=== PATIENT | male | born 1985 | race African-American/Black ===

== ENCOUNTER 2017-07-25 23:50 | Emergency (ER) | payer OTHER ==
[~2017-07-25] VITALS: Ht 185.4 cm; Wt 93.0 kg
[~2017-07-25 23:50] MED LIST: NOHOMEMEDICATIONS; PHENERGAN 25 MG25 M1 PO; PROMETHAZINE12.5 M1 PO
[2017-07-26] MEDS ORDERED: PREDNISONE50 MG PO (00:42)
[2017-07-26 01:09] VITALS: BP 125/75
== END 2017-07-26 01:14 | disposition home or self-care (01) ==
LOC: M.ERS 23:50
DX: R21 Rash and other nonspecific skin eruption (principal); T78.1XXA Other adverse food reactions, not elsewhere classified, initial encounter; F17.210 Nicotine dependence, cigarettes, uncomplicated; Z91.018 Allergy to other foods; X58.XXXA Exposure to other specified factors, initial encounter